=== PATIENT | male | born 1975 | race Caucasian/White ===

== ENCOUNTER 2024-06-04 16:50 | Emergency (ER) | payer OTHER ==
[~2024-06-04] VITALS: Ht 180.3 cm; Wt 85.9 kg
[~2024-06-04 16:50] MED LIST: EFFEXOR XR75 MG PO; IBUPROFEN200 M1 PO; ZITHROMAX250 MG PO
[2024-06-04 17:30] LABS: BILIRUBIN, URINE NEGATIVE (negative); BLOOD/HGB, URINE NEGATIVE (Negative); KETONE, URINE NEGATIVE (Negative); LEUK ESTERASE, URINE NEGATIVE (negative); NITRITE, URINE NEGATIVE (negative); PH, URINE 5.5 (5-7)
[2024-06-04 17:42] LABS: AMPHETAMINES, URINE POSITIVE (NEGATIVE); BARBITURATES, URINE NEGATIVE (NEGATIVE); BENZODIAZEPINE, URINE NEGATIVE (NEGATIVE); BUPRENORPHINE, URINE NEGATIVE (NEGATIVE); CANNABINOID, URINE NEGATIVE (NEGATIVE); COCAINE, URINE NEGATIVE (NEGATIVE); ECSTASY, URINE POSITIVE (NEGATIVE); FENTANYL, URINE NEGATIVE (NEGATIVE); METHADONE, URINE NEGATIVE (NEGATIVE); OPIATES, URINE NEGATIVE (NEGATIVE); OXYCODONE, URINE NEGATIVE (NEGATIVE); PHENCYCLIDINE, URINE NEGATIVE (NEGATIVE)
[2024-06-04 17:44] LABS: EOSINOPHILS 3.7 % (0-6); HEMOGLOBIN 13.7 g/dL (12.0-18.0)
[2024-06-04 17:47] LABS: BASOPHILS 0.9 % (0-2); HEMATOCRIT 41.2 % (35.0-50.0); LYMPHOCYTES 22.3 % (24-44); MCHC 33.3 g/dl (30-36); MONOCYTES 8.2 % (0-12); NEUTROPHILS 64.9 % (39-80); PLATELET COUNT 336 K/uL (140-440); RBC 4.58 M/ul (4.3-5.7); RDW 13.3 (10.5-15.0)
[2024-06-04 18:08] LABS: ACETAMINOPHEN 0 ug/mL (10-30); ALBUMIN 3.5 g/dL (3.4-5.0); ALBUMIN/GLOBULIN RATIO 1.06 (1.1-2.4); ALCOHOL, MEDICAL <3 ng/dL (<3); ALKALINE PHOSPHATASE 68 U/L (46-116); ALT (SGPT) 29 U/L (14-59); ANION GAP 13.1 (7-21); AST (SGOT) 12 U/L (15-37); BILIRUBIN, TOTAL 0.3 ng/dL (0.2-1.0); BUN/CREATININE RATIO 18.86 (6.0-28.6); CALCIUM 9.3 mg/dL (8.5-10.1); CARBON DIOXIDE 29 mmol/L (21-32); CHLORIDE 105 mmol/L (98-107); CREATININE, SERUM 1.06 mg/dL (0.70-1.30); GLOMERULAR FILTRATION RATE,EST 87 mL/min (>60); POTASSIUM 4.1 mmol/L (3.5-5.1); PROTEIN, TOTAL 6.8 g/dL (6.4-8.2); SALICYLATE 4.4 mg/dL (2.8-20.0); TSH, 3RD GENERATION 1.435 uIU/mL (0.358-3.740); UREA NITROGEN 20 mg/dL (7-18)
[2024-06-05] MEDS ORDERED: NICOTINE 21 MG/24 HR 1 EA TDSY TD SCH (10:30)
[2024-06-05 20:15] LABS: INFLUENZA B NAA NEGATIVE (NEGATIVE); RESPIRATORY SYNCYTIAL VIR NAA NEGATIVE (NEGATIVE)
[2024-06-06 09:37] VITALS: BP 129/74
--- NOTE | 2024-06-06 21:21 | EKG ---
[facility] [address] [place] [place] [address] Signed Normal sinus rhythm Normal ECG No previous ECGs available Confirmed by Diana Sams MD ([id number]) on 06/06/2024 9:21:44 PM Electronically Signed By: DIANA SAMS MD 06/06/242120 PATIENT NAME: CECE HERNANDEZ [facility] Electrocardiogram DATE OF : 79 PHYSICIAN: DIANA SAMS MD REPORT #: [id number] REPORT IS CONFIDENTIAL AND NOT TO BE RELEASED WITHOUT AUTHORIZATION
== END 2024-06-06 09:40 ==
LOC: ED 16:50
PROVIDERS: Emergency Medicine; Internal Medicine
DX: R45.851 Suicidal ideations (principal); F15.90 Other stimulant use, unspecified, uncomplicated; I10 Essential (primary) hypertension; F17.200 Nicotine dependence, unspecified, uncomplicated; Z91.040 Latex allergy status
CPT/HCPCS: 36415; 80053; 80307; 81003; 84443; 85025; 87502; 99285; G0480; U0002

== ENCOUNTER 2024-07-24 16:17 | Emergency (ER) | payer OTHER ==
[~2024-07-24] VITALS: Ht 180.3 cm; Wt 92.5 kg
[~2024-07-24 16:17] MED LIST changes: +DICLOFENAC SODI50 MG PO; +HYDROXYZINE HCL50 MG PO; +PROZAC40 MG PO
--- OUTSIDE RECORDS SUMMARY | 2024-07-24 16:18 | XMS ---
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 E.D. VISIT COUNT (12 MO.) [address] [facility] TOTAL 4 NOTE: Visits indicate total known visits. 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
[2024-07-24 16:56] LABS: BILIRUBIN, URINE NEGATIVE (negative); BLOOD/HGB, URINE NEGATIVE (Negative); KETONE, URINE NEGATIVE (Negative); LEUK ESTERASE, URINE NEGATIVE (negative); NITRITE, URINE NEGATIVE (negative)
[2024-07-24] MEDS ORDERED: GABAPENTIN300 MG PO (17:02)
[2024-07-24] MEDS ORDERED: FOLIC ACID1 MG PO (17:02)
[2024-07-24] MEDS ORDERED: NICOTINE1 EAC2 TD (17:02)
[2024-07-24] MEDS ORDERED: MULTIVITAMIN-M1 EACH PO (17:02)
[2024-07-24] MEDS ORDERED: BENZTROPINE ME0.5 MG PO (17:02)
[2024-07-24 17:12] LABS: AMPHETAMINES, URINE POSITIVE (NEGATIVE); BARBITURATES, URINE NEGATIVE (NEGATIVE); BENZODIAZEPINE, URINE NEGATIVE (NEGATIVE); BUPRENORPHINE, URINE NEGATIVE (NEGATIVE); CANNABINOID, URINE NEGATIVE (NEGATIVE); COCAINE, URINE NEGATIVE (NEGATIVE); ECSTASY, URINE POSITIVE (NEGATIVE); FENTANYL, URINE NEGATIVE (NEGATIVE); METHADONE, URINE NEGATIVE (NEGATIVE); OPIATES, URINE NEGATIVE (NEGATIVE); OXYCODONE, URINE NEGATIVE (NEGATIVE); PHENCYCLIDINE, URINE NEGATIVE (NEGATIVE)
[2024-07-24 17:24] LABS: EOSINOPHILS 5.1 % (0-6); HEMATOCRIT 38.9 % (35.0-50.0); HEMOGLOBIN 13.3 g/dL (12.0-18.0); LYMPHOCYTES 28.5 % (24-44); MCH 31.1 (27-36); MCHC 34.3 g/dl (30-36); MCV 90.8 fl (81-99); MONOCYTES 8.5 % (0-12); NEUTROPHILS 56.9 % (39-80); PLATELET COUNT 364 K/uL (140-440); RBC 4.28 M/ul (4.3-5.7); RDW 13.5 (10.5-15.0)
[2024-07-24 17:47] LABS: ACETAMINOPHEN 0 ug/mL (10-30); ALBUMIN 3.4 g/dL (3.4-5.0); ALBUMIN/GLOBULIN RATIO 1.06 (1.1-2.4); ALCOHOL, MEDICAL <3 ng/dL (<3); ALKALINE PHOSPHATASE 71 U/L (46-116); ALT (SGPT) 25 U/L (14-59); ANION GAP 7.1 (7-21); AST (SGOT) 11 U/L (15-37); BILIRUBIN, TOTAL 0.2 ng/dL (0.2-1.0); BUN/CREATININE RATIO 12.26 (6.0-28.6); CALCIUM 9.4 mg/dL (8.5-10.1); CARBON DIOXIDE 32 mmol/L (21-32); CHLORIDE 107 mmol/L (98-107); CREATININE, SERUM 1.06 mg/dL (0.70-1.30); GLOMERULAR FILTRATION RATE,EST 87 mL/min (>60); POTASSIUM 4.1 mmol/L (3.5-5.1); PROTEIN, TOTAL 6.6 g/dL (6.4-8.2); SALICYLATE 2.9 mg/dL (2.8-20.0); UREA NITROGEN 13 mg/dL (7-18)
[2024-07-24] MEDS ORDERED: hydrOXYzine pamoate 50 MG CAP PO SCH (21:00)
[2024-07-25 08:44] VITALS: BP 114/71
--- NOTE | 2024-07-25 15:51 | EKG ---
[facility] [address] [place] [address] [place] [address] Signed Normal sinus rhythm Normal ECG When compared with ECG of 09-JUL-2024 10:40, No significant change was found Confirmed by Diana Sams MD ([id number]) on 07/25/2024 3:51:10 PM Electronically Signed By: DIANA SAMS MD 07/25/24 1551 PATIENT NAME: CECE HERNANDEZ [facility] Electrocardiogram DATE OF : 79 PHYSICIAN: DIANA SAMS MD REPORT #: [id number] REPORT IS CONFIDENTIAL AND NOT TO BE RELEASED WITHOUT AUTHORIZATION
== END 2024-07-25 08:07 ==
LOC: ED 16:17
PROVIDERS: Emergency Medicine
DX: R45.851 Suicidal ideations (principal); I10 Essential (primary) hypertension; E78.00 Pure hypercholesterolemia, unspecified; F17.200 Nicotine dependence, unspecified, uncomplicated; Z91.040 Latex allergy status; Z79.899 Other long term (current) drug therapy
CPT/HCPCS: 36415; 80053; 80307; 81003; 84443; 85025; 93005; 93010; 99285; G0480; U0002

== ENCOUNTER 2024-10-09 08:46 | Emergency (ER) | payer OTHER ==
[~2024-10-09] VITALS: Ht 180.3 cm; Wt 103.1 kg
[~2024-10-09 08:46] MED LIST changes: +BENZTROPINE ME0.5 MG PO; +FOLIC ACID1 MG PO; +GABAPENTIN300 MG PO; +MULTIVITAMIN-M1 EACH PO; +NICOTINE1 EAC2 TD
[2024-10-09] MEDS ORDERED: ABILIFY20 MG PO (09:04)
[2024-10-09] MEDS ORDERED: DIVALPROEX SOD500 M1 PO (09:14)
[2024-10-09] MEDS ORDERED: ESCITALOPRAM OXA5 MG PO (09:14)
[2024-10-09] MEDS ORDERED: SEROQUEL25 MG PO (09:15)
[2024-10-09 09:37] LABS: BASOPHILS 0.8 % (0-2); HEMATOCRIT 43.2 % (35.0-50.0); HEMOGLOBIN 14.4 g/dL (12.0-18.0); LYMPHOCYTES 32.3 % (24-44); MCH 30.5 (27-36); MCHC 33.5 g/dl (30-36); MCV 91.1 fl (81-99); MONOCYTES 9.4 % (0-12); NEUTROPHILS 53.5 % (39-80); PLATELET COUNT 328 K/uL (140-440); RBC 4.74 M/ul (4.3-5.7); RDW 13.8 (10.5-15.0)
[2024-10-09 10:01] LABS: ACETAMINOPHEN 0 ug/mL (10-30); ALBUMIN 3.3 g/dL (3.4-5.0); ALBUMIN/GLOBULIN RATIO 0.92 (1.1-2.4); ALCOHOL, MEDICAL <3 ng/dL (<3); ALKALINE PHOSPHATASE 49 U/L (46-116); ALT (SGPT) 34 U/L (14-59); ANION GAP 14.4 (7-21); AST (SGOT) 14 U/L (15-37); BILIRUBIN, TOTAL 0.3 ng/dL (0.2-1.0); BUN/CREATININE RATIO 11.53 (6.0-28.6); CALCIUM 8.7 mg/dL (8.5-10.1); CARBON DIOXIDE 27 mmol/L (21-32); CHLORIDE 104 mmol/L (98-107); CREATININE, SERUM 1.04 mg/dL (0.70-1.30); GLOMERULAR FILTRATION RATE,EST 89 mL/min (>60); POTASSIUM 4.4 mmol/L (3.5-5.1); PROTEIN, TOTAL 6.9 g/dL (6.4-8.2); SALICYLATE 3.8 mg/dL (2.8-20.0); TSH, 3RD GENERATION 0.958 uIU/mL (0.358-3.740); UREA NITROGEN 12 mg/dL (7-18)
[2024-10-09 10:23] LABS: BILIRUBIN, URINE NEGATIVE (negative); BLOOD/HGB, URINE NEGATIVE (Negative); KETONE, URINE NEGATIVE (Negative); LEUK ESTERASE, URINE NEGATIVE (negative); NITRITE, URINE NEGATIVE (negative); PH, URINE 6.5 (5-7)
[2024-10-09 10:43] LABS: AMPHETAMINES, URINE NEGATIVE (NEGATIVE); BARBITURATES, URINE NEGATIVE (NEGATIVE); BENZODIAZEPINE, URINE NEGATIVE (NEGATIVE); BUPRENORPHINE, URINE NEGATIVE (NEGATIVE); CANNABINOID, URINE NEGATIVE (NEGATIVE); COCAINE, URINE NEGATIVE (NEGATIVE); ECSTASY, URINE NEGATIVE (NEGATIVE); FENTANYL, URINE NEGATIVE (NEGATIVE); METHADONE, URINE NEGATIVE (NEGATIVE); OPIATES, URINE NEGATIVE (NEGATIVE); OXYCODONE, URINE NEGATIVE (NEGATIVE); PHENCYCLIDINE, URINE NEGATIVE (NEGATIVE)
[2024-10-09 11:10] VITALS: BP 158/92
== END 2024-10-09 11:10 | disposition home or self-care (01) ==
LOC: ED 08:46
PROVIDERS: Emergency Medicine
DX: I10 Essential (primary) hypertension (principal); Z02.2 Encounter for examination for admission to residential institution; F17.200 Nicotine dependence, unspecified, uncomplicated; Z91.040 Latex allergy status; Z79.899 Other long term (current) drug therapy
CPT/HCPCS: 36415; 80053; 80307; 81003; 84443; 85025; 99283; G0480; U0002